=== PATIENT | male | born 1995 | race Caucasian/White ===

== ENCOUNTER 2017-02-10 11:37 | Emergency (ER) ==
[2017-02-10 11:38] VITALS: BMI 22.4
[2017-02-10 11:41] VITALS: BP 139/96; TEMP 98.1
--- NOTE | 2017-02-10 12:55 | ED.PDOC ---
General ED Provider: Dr. LILLIAN HOLLINGSWORTH JR Chief Complaint: Tooth Problem Stated Complaint: patient c/o left upper tooth pain. states he doesn't have the money to see the dentist and [place].[End]98.1 77 16 98% 139/96 07/12. left upper molar Time Seen by Physician: 12:55 Mode of Arrival: Walk-In Information Source: Patient Exam Limitations: No limitations [facility] T[facility] Documentation Reviewed and Agree: No Review of Systems - Review Of Systems Constitutional: Reports: No symptoms Eyes: Reports: No symptoms Ears, Nose, Mouth, Throat: Reports: Mouth pain (left lower first molar) Respiratory: Reports: No symptoms Cardiac: Reports: No symptoms GI: Reports: No symptoms : Reports: No symptoms Musculoskeletal: Reports: No symptoms Skin: Reports: Rash Neurological: Reports: No symptoms Endocrine: Reports: No symptoms Hematologic/Lymphatic: Reports: No symptoms All Other Systems: Other Past Medical History - Past Medical History Previously Healthy: Yes Endocrine: Reports: None Cardiovascular: Reports: None Respiratory: Reports: Asthma Hematological: Reports: None Gastrointestinal: Reports: None Genitourinary: Reports: None Neuro/Psych: Reports: None Musculoskeletal: Reports: None Cancer: Reports: None - Surgical History General Surgical History: Reports: Orthopedic (right hand surg due to injury), Unknown - Family History Family History: Reports: Unknown - Social History Smoking Status: Former smoker Hx Substance Use: Yes (marijuana) Alcohol Screening: Occasionally Physical Exam - Physical Exam Appearance: Well-appearing Ill-appearing: Mild Pain Distress: Mild Eyes: MATILDE, EOMI, Conjunctiva clear ENT: Ears normal, Nose normal, Erythema Neck: Supple Respiratory: Airway patent, Breath sounds clear, Breath sounds equal, Respirations nonlabored Cardiovascular: RRR, Pulses normal, No rub, No murmur GI/: Soft, Nontender, No masses, Bowel sounds normal, No Organomegaly Musculoskeletal: Normal strength, ROM intact, No edema, No calf tenderness Skin: Warm, Dry, Normal color (note rash) Neurological: Sensation intact, Motor intact, Reflexes intact, Cranial nerves intact, Alert, Oriented Psychiatric: Affect appropriate, Mood appropriate Critical Care Note - Critical Care Note Total Time (mins): 0 Course - Course Vital Signs: Temp Pulse Resp BP Pulse Ox 02/10/17 11:39 98.1 F 77 16 139/96 H 98 Departure - Departure Time of Disposition: 13:02 Disposition: HOME SELF-CARE Discharge Problem: Toothache, Dental cavity, Tinea corporis Instructions: Toothache (ED), Dental Caries (ED), Tinea Corporis (ED), Jock Itch (ED) Condition: Good Pt referred to PMD for follow-up: Yes Additional Instructions: for "heat rash" recommend antifungal such as tolnaftate or lamisil requires at least 4-6 weeks to cure for tooth need to follow up with dentist antibiotic until finished january use naproxen for pain Tylenol with codeine for pain not relieved Prescriptions: Naproxen [Naprosyn] 500 mg PO Q12HR PRN #30 tablet PRN Reason: PAIN Acetaminophen with Codeine [Tylenol #3 Tab] 1 - 2 tab PO QID PRN #20 tablet PRN Reason: PAIN Penicillin V Potassium 500 mg PO QID #28 tablet Allergies/Adverse Reactions: Allergies No Known Allergies Allergy (Verified 02/10/17 11:41) Home Medications: Ambulatory Orders Acetaminophen with Codeine [Tylenol #3 Tab] 1 - 2 tab PO QID PRN #20 tablet 08/19 Naproxen [Naprosyn] 500 mg PO Q12HR PRN #30 tablet 02/10/17 Penicillin V Potassium 500 mg PO QID #28 tablet 02/10/17 Disposition Discussed With: Patient
== END 2017-02-10 13:20 | disposition home or self-care (01) ==
LOC: ED 11:37
DX: K08.89 Other specified disorders of teeth and supporting structures (principal); K02.7 Dental root caries; B35.4 Tinea corporis
CPT/HCPCS: 99282